=== PATIENT | female | born 1965 | race Caucasian/White ===

== ENCOUNTER → 2016-10-19 | Outpatient (CLI) | payer BC, OTHER ==
[~2016-10-19] MED LIST: ALENDRONATE SOD70 MG PO; ALL DAY ALLERGY10 MG PO; BUTRANS1 EAC1 TD; CETIRIZINE HCL10 MG PO; CYCLOBENZAPRINE10 MG PO; CYMBALTA60 MG PO; ECOTRIN81 MG PO; ESOMEPRAZOLE MA40 MG PO; FISH OIL + D31 EACH PO; FLONASE 0.05% N16 GM; FUROSEMIDE20 MG PO; IBUPROFEN800 MG PO; ISOSORBIDE MONO60 MG PO; LEVSIN0.125 MG PO; LISINOPRIL10 MG PO; LOPRESSOR 25 MG25 MG PO; LORTAB 7.5-3251 EACH PO; MIRALAX17 GM PO; NAPROSYN500 MG PO; NITROGLYCERIN0.4 MG SL; POTASSIUM CHLO20 ME1 PO
[2016-10-19 09:29] LABS: HEMOGLOBIN 12.8 gm/dl (12.3-15.3); RED BLOOD COUNT 4.24 M/UL (4.00-5.10)
[2016-10-19 09:51] LABS: BUN/CREATININE RATIO 20 (0-10)
== END ==
LOC: OPSV2 07:31
PROVIDERS: Obstetrics & Gynecology
DX: Z01.810 Encounter for preprocedural cardiovascular examination (principal); Z01.812 Encounter for preprocedural laboratory examination; N81.6 Rectocele; I10 Essential (primary) hypertension; Z79.899 Other long term (current) drug therapy
CPT/HCPCS: 36415; 80048; 81001; 85025; 93005

== ENCOUNTER 2016-10-24 05:34 | Day surgery (SDC) | payer BC, OTHER ==
[~2016-10-24] VITALS: Ht 147.3 cm; Wt 57.2 kg
[2016-10-24] MEDS ORDERED: CYMBALTA60 MG PO (06:46)
[2016-10-24] MEDS ORDERED: ISOSORBIDE MONO60 MG PO (06:48)
[2016-10-24] MEDS ORDERED: ALENDRONATE SOD70 MG PO (06:49)
[2016-10-24] MEDS ORDERED: CYCLOBENZAPRINE10 MG PO (06:49)
[2016-10-24] MEDS ORDERED: IBUPROFEN800 MG PO (06:50)
[2016-10-24] MEDS ORDERED: ECOTRIN81 MG PO (06:52)
[2016-10-24] MEDS ORDERED: LISINOPRIL10 MG PO (06:53)
[2016-10-24] MEDS ORDERED: ESOMEPRAZOLE MA40 MG PO (06:53)
[2016-10-24] MEDS ORDERED: FUROSEMIDE20 MG PO (06:54)
[2016-10-24] MEDS ORDERED: POTASSIUM CHLO20 ME1 PO ×2 (06:55→06:56)
[2016-10-24] MEDS ORDERED: NITROGLYCERIN0.4 MG SL (06:57)
[2016-10-24] MEDS ORDERED: LOPRESSOR 25 MG25 MG PO (06:57)
[2016-10-24] MEDS ORDERED: FISH OIL + D31 EACH PO (06:58)
[2016-10-24] MEDS ORDERED: CETIRIZINE HCL10 MG PO (06:59)
[2016-10-24] MEDS ORDERED: FLONASE 0.05% N16 GM (07:00)
[2016-10-24] MEDS ORDERED: LEVSIN0.125 MG PO (07:01)
[2016-10-24] MEDS ORDERED: BUTRANS1 EAC1 TD (07:04)
[2016-10-24 12:23] LABS: HEMOGLOBIN 10.2 gm/dl (12.3-15.3)
[2016-10-25 04:48] LABS: HEMOGLOBIN 10.1 gm/dl (12.3-15.3); RED BLOOD COUNT 3.38 M/UL (4.00-5.10); WHITE BLOOD COUNT 5.9 K/UL (4.5-11.0)
[2016-10-25 04:56] LABS: BUN/CREATININE RATIO 14 (0-10)
[2016-10-26] MEDS ORDERED: LORTAB 7.5-3251 EACH PO (20:15)
[2016-10-26] MEDS ORDERED: NAPROSYN500 MG PO (20:16)
[2016-10-26] MEDS ORDERED: MIRALAX17 GM PO (20:16)
[2016-10-26] MEDS ORDERED: ALL DAY ALLERGY10 MG PO (20:21)
== END 2016-10-26 21:13 | disposition home or self-care (01) ==
LOC: OR 05:34 → MED SURG 4 10:49 → OR 10-26 21:13
PROVIDERS: Obstetrics & Gynecology; Physician Assistant
PROC: 0JQC0ZZ Repair Pelvic Region Subcutaneous Tissue and Fascia, Open Approach (ICD-10-PCS; 2016-10-24)
PROC: 0TQD0ZZ Repair Urethra, Open Approach (ICD-10-PCS; 2016-10-24)
PROC: 0JQC0ZZ Repair Pelvic Region Subcutaneous Tissue and Fascia, Open Approach (ICD-10-PCS; 2016-10-24)
PROC: 0USG0ZZ Reposition Vagina, Open Approach (ICD-10-PCS; 2016-10-24)
PROC: 0TSD0ZZ Reposition Urethra, Open Approach (ICD-10-PCS; principal; 2016-10-24 07:30)
DX: N81.6 Rectocele (principal); N81.10 Cystocele, unspecified; N39.3 Stress incontinence (female) (male); I10 Essential (primary) hypertension; I25.2 Old myocardial infarction; K59.09 Other constipation; K21.9 Gastro-esophageal reflux disease without esophagitis; M81.0 Age-related osteoporosis without current pathological fracture; M19.90 Unspecified osteoarthritis, unspecified site; F41.9 Anxiety disorder, unspecified; F32.9 Major depressive disorder, single episode, unspecified; Z79.1 Long term (current) use of non-steroidal anti-inflammatories (NSAID); Z79.899 Other long term (current) drug therapy; Z90.710 Acquired absence of both cervix and uterus; Z98.51 Tubal ligation status; Z98.890 Other specified postprocedural states
CPT/HCPCS: 36415; 80048; 85014; 85018; 85027; C1769; C1771; J0690; J1885; J2250; J2405; J2795; J7120